=== PATIENT | male | born 1945 | race Caucasian/White ===

== ENCOUNTER 2016-12-07 23:49 | Inpatient (IN) | payer OTHER ==
[~2016-12-07] VITALS: Ht 177.8 cm; Wt 59.4 kg
[2016-12-07 23:50] VITALS: BP_SYST 96
[2016-12-08] MEDS ORDERED: ONDANSETRON HCL 4 MG/2 ML VIAL IVP ONE (00:15)
[2016-12-08] MEDS ORDERED: NACL 0.9% 1,000 ML IV ONE (00:45)
[2016-12-08 01:50] LABS: BASOPHILS % (AUTO) 0.2 % (0.0-2.0); EOSINOPHILS # (AUTO) 0.2 K/uL (0.0-0.4); EOSINOPHILS % (AUTO) 1.3 % (0.0-4.0); HEMATOCRIT 35.5 % (36-54); HEMOGLOBIN 11.8 g/dL (14.0-18.0); LYMPHOCYTES # (AUTO) 1.4 K/uL (1.0-5.5); LYMPHOCYTES % (AUTO) 7.9 % (20.5-51.5); MEAN CORPUSCULAR HEMOGLOBIN 32 pg (27-31); MEAN CORPUSCULAR HGB CONC 33 % (32-36); MEAN CORPUSCULAR VOLUME 97 fL (79.0-98.0); MONOCYTES # (AUTO) 0.6 K/uL (0.0-1.0); MONOCYTES % (AUTO) 3.5 % (1.7-9.3); NEUTROPHILS # (AUTO) 15.5 K/uL (1.8-7.7); NEUTROPHILS % (AUTO) 87.1 % (40.0-70.0); PLATELET COUNT (AUTO) 314 K/uL (130-430); RED BLOOD CELL COUNT(AUTO) 3.68 MIL/uL (4.2-6.2); RED CELL DISTRIBUTION WIDTH 12.9 % (9.0-15.0); WHITE BLOOD COUNT (AUTO) 17.7 K/uL (4.8-10.8)
[2016-12-08 01:54] LABS: ANION GAP 4 (5-15); CALCIUM 8.2 mg/dL (8.4-11.0); CHLORIDE 101 mmol/L (98-107); CREATININE 1.21 mg/dL (0.55-1.30); GLUCOSE 248 mg/dL (70-99); POTASSIUM 4.1 mmol/L (3.5-5.1); SODIUM SERUM 137 mmol/L (136-145); UREA NITROGEN, BLOOD 14 mg/dL (8-21)
[2016-12-08 02:01] LABS: ALANINE AMINOTRANSFERASE 19 U/L (12-78); ALBUMIN 2.2 g/dL (3.4-4.8); ASPARTATE AMINOTRANSFERASE 20 U/L (10-37); LIPASE 1335 U/L (73-393); TOTAL BILIRUBIN 0.4 mg/dL (0.0-1.0)
[2016-12-08] MEDS ORDERED: GLU500 PO (02:03)
[2016-12-08] MEDS ORDERED: GABA-531 PO (02:03)
[2016-12-08] MEDS ORDERED: FOLI-43 PO (02:03)
[2016-12-08] MEDS ORDERED: PRED5TAB PO (02:03)
[2016-12-08 02:37] VITALS: BP_SYST 127
[2016-12-08] MEDS: NACL 0.9% 1,000 ML IV SCH ×3 (02:48→19:55)
[2016-12-08 02:49] VITALS: BP_SYST 127
[2016-12-08 03:59] VITALS: BP_SYST 137
[2016-12-08 07:47] LABS: AMYLASE 142 U/L (0-100); LIPASE 1169 U/L (73-393)
[2016-12-08 08:00] VITALS: BP_SYST 138
[2016-12-08] MEDS ORDERED: DIATR MEGLU/DIATRIZ SOD 30 ML SOLUTION PO ONE (08:19)
[2016-12-08] MEDS ORDERED: ENALAPRILAT DIHYDRATE 1.25 MG/ML VIAL IVP PRN (08:30)
[2016-12-08] MEDS ORDERED: DEXTROSE 50% JECT 50 ML DISP.SYRIN IVP PRN (08:30)
[2016-12-08] MEDS ORDERED: IOHEXOL 100 ML IV ONE (10:41)
[2016-12-08] MEDS: INSULIN REGULAR, HUMAN 100 UNITS/ML, 10 ML VIAL (novoLIN R) SUBCUT PRN (11:13)
[2016-12-08 12:20] VITALS: BP_SYST 122
[2016-12-08 15:48] VITALS: BP_SYST 144
[2016-12-08] MEDS: MORPHINE 2 MG/ML INJ. SYRINGE IVP PRN ×2 (17:24→21:15)
[2016-12-08] MEDS: ONDANSETRON HCL 4 MG/2 ML VIAL IVP PRN (19:52)
[2016-12-09] VITALS: BP_SYST 105
[2016-12-09] MEDS: ONDANSETRON HCL 4 MG/2 ML VIAL IVP PRN ×3 (01:07→21:14)
[2016-12-09] MEDS: MORPHINE 2 MG/ML INJ. SYRINGE IVP PRN ×3 (01:08→23:53)
[2016-12-09 06:01] VITALS: BP_SYST 127
[2016-12-09] MEDS: NACL 0.9% 1,000 ML IV SCH ×2 (06:19→16:27)
[2016-12-09 07:40] LABS: HEMATOCRIT 41.5 % (36-54); HEMOGLOBIN 13.6 g/dL (14.0-18.0); MEAN CORPUSCULAR HEMOGLOBIN 31 pg (27-31); MEAN CORPUSCULAR HGB CONC 33 % (32-36); MEAN CORPUSCULAR VOLUME 96 fL (79.0-98.0); PLATELET COUNT (AUTO) 414 K/uL (130-430); RED BLOOD CELL COUNT(AUTO) 4.34 MIL/uL (4.2-6.2); RED CELL DISTRIBUTION WIDTH 12.9 % (9.0-15.0)
[2016-12-09 07:46] LABS: WHITE BLOOD COUNT (AUTO) 22.2 K/uL (4.8-10.8)
[2016-12-09 08:05] VITALS: BP_SYST 109
[2016-12-09 08:06] LABS: ALANINE AMINOTRANSFERASE 20 U/L (12-78); ALBUMIN 2.3 g/dL (3.4-4.8); ANION GAP 10 (5-15); ASPARTATE AMINOTRANSFERASE 17 U/L (10-37); CALCIUM 8.9 mg/dL (8.4-11.0); CHLORIDE 100 mmol/L (98-107); CREATININE 1.08 mg/dL (0.55-1.30); GLUCOSE 137 mg/dL (70-99); POTASSIUM 4.1 mmol/L (3.5-5.1); SODIUM SERUM 135 mmol/L (136-145); TOTAL BILIRUBIN 1.1 mg/dL (0.0-1.0); UREA NITROGEN, BLOOD 10 mg/dL (8-21)
[2016-12-09 09:37] LABS: ATYPICAL LYMPHOCYTES % 0 % (0-0); BAND % (MANUAL) 3 % (0-6); BASOPHILS % (MANUAL) 0 % (0-2); EOSINOPHILS % (MANUAL) 3 % (0-7); LYMPHOCYTES % (MANUAL) 8 % (20-46); MONOCYTES % (MANUAL) 5 % (0-11)
[2016-12-09 13:18] VITALS: BP_SYST 102
[2016-12-09 17:20] VITALS: BP_SYST 113
[2016-12-09 20:10] VITALS: BP_SYST 110
[2016-12-09] MEDS: INSULIN REGULAR, HUMAN 100 UNITS/ML, 10 ML VIAL (novoLIN R) SUBCUT PRN (23:52)
[2016-12-10 01:04] VITALS: BP_SYST 115
[2016-12-10] MEDS: NACL 0.9% 1,000 ML IV SCH ×3 (02:43→23:24)
[2016-12-10 04:58] VITALS: BP_SYST 108
[2016-12-10] MEDS: INSULIN REGULAR, HUMAN 100 UNITS/ML, 10 ML VIAL (novoLIN R) SUBCUT PRN ×2 (06:45→17:07)
[2016-12-10 08:01] VITALS: BP_SYST 119
[2016-12-10] MEDS: MORPHINE 2 MG/ML INJ. SYRINGE IVP PRN ×3 (08:40→21:54)
[2016-12-10 10:03] LABS: HEMATOCRIT 39.2 % (36-54); HEMOGLOBIN 12.6 g/dL (14.0-18.0); MEAN CORPUSCULAR HEMOGLOBIN 31 pg (27-31); MEAN CORPUSCULAR HGB CONC 32 % (32-36); MEAN CORPUSCULAR VOLUME 97 fL (79.0-98.0); PLATELET COUNT (AUTO) 386 K/uL (130-430); RED BLOOD CELL COUNT(AUTO) 4.05 MIL/uL (4.2-6.2); RED CELL DISTRIBUTION WIDTH 13.2 % (9.0-15.0); WHITE BLOOD COUNT (AUTO) 22.3 K/uL (4.8-10.8)
[2016-12-10 10:07] LABS: ANION GAP 7 (5-15); CALCIUM 8.5 mg/dL (8.4-11.0); CHLORIDE 106 mmol/L (98-107); CREATININE 1.09 mg/dL (0.55-1.30); GLUCOSE 189 mg/dL (70-99); POTASSIUM 4.2 mmol/L (3.5-5.1); SODIUM SERUM 139 mmol/L (136-145); UREA NITROGEN, BLOOD 10 mg/dL (8-21)
[2016-12-10 10:11] LABS: ALANINE AMINOTRANSFERASE 17 U/L (12-78); ALBUMIN 2.2 g/dL (3.4-4.8); ASPARTATE AMINOTRANSFERASE 16 U/L (10-37); LIPASE 763 U/L (73-393); TOTAL BILIRUBIN 1.2 mg/dL (0.0-1.0)
[2016-12-10 10:24] LABS: ATYPICAL LYMPHOCYTES % 0 % (0-0); BAND % (MANUAL) 0 % (0-6); BASOPHILS % (MANUAL) 0 % (0-2); EOSINOPHILS % (MANUAL) 1 % (0-7); LYMPHOCYTES % (MANUAL) 10 % (20-46); MONOCYTES % (MANUAL) 2 % (0-11)
[2016-12-10 12:01] VITALS: BP_SYST 115
[2016-12-10 16:02] VITALS: BP_SYST 116
[2016-12-10 19:45] VITALS: BP_SYST 119
[2016-12-11 00:43] VITALS: BP_SYST 119
[2016-12-11] MEDS: MORPHINE 2 MG/ML INJ. SYRINGE IVP PRN (02:22)
[2016-12-11 04:07] VITALS: BP_SYST 118
[2016-12-11 08:04] VITALS: BP_SYST 125
[2016-12-11] MEDS: NACL 0.9% 1,000 ML IV SCH ×2 (09:14→20:22)
[2016-12-11] MEDS: ACETAMINOPHEN 325 MG TABLET PO PRN (09:35)
[2016-12-11 09:49] LABS: ANION GAP 6 (5-15); CALCIUM 8.3 mg/dL (8.4-11.0); CHLORIDE 104 mmol/L (98-107); CREATININE 0.93 mg/dL (0.55-1.30); GLUCOSE 199 mg/dL (70-99); POTASSIUM 3.6 mmol/L (3.5-5.1); SODIUM SERUM 136 mmol/L (136-145); UREA NITROGEN, BLOOD 8 mg/dL (8-21)
[2016-12-11 09:54] LABS: BASOPHILS # (AUTO) 0.2 K/uL (0.0-0.2); EOSINOPHILS # (AUTO) 0.3 K/uL (0.0-0.4); EOSINOPHILS % (AUTO) 1.9 % (0.0-4.0); HEMATOCRIT 33.9 % (36-54); HEMOGLOBIN 11.3 g/dL (14.0-18.0); LYMPHOCYTES # (AUTO) 1.7 K/uL (1.0-5.5); MEAN CORPUSCULAR HEMOGLOBIN 32 pg (27-31); MEAN CORPUSCULAR HGB CONC 33 % (32-36); MEAN CORPUSCULAR VOLUME 96 fL (79.0-98.0); MONOCYTES # (AUTO) 0.7 K/uL (0.0-1.0); MONOCYTES % (AUTO) 4.8 % (1.7-9.3); NEUTROPHILS # (AUTO) 12.2 K/uL (1.8-7.7); NEUTROPHILS % (AUTO) 81.3 % (40.0-70.0); PLATELET COUNT (AUTO) 326 K/uL (130-430); RED BLOOD CELL COUNT(AUTO) 3.54 MIL/uL (4.2-6.2); RED CELL DISTRIBUTION WIDTH 13.3 % (9.0-15.0); WHITE BLOOD COUNT (AUTO) 15.1 K/uL (4.8-10.8)
[2016-12-11 10:12] LABS: ALANINE AMINOTRANSFERASE 17 U/L (12-78); ASPARTATE AMINOTRANSFERASE 16 U/L (10-37); LIPASE 936 U/L (73-393); TOTAL BILIRUBIN 0.8 mg/dL (0.0-1.0)
[2016-12-11] MEDS: INSULIN REGULAR, HUMAN 100 UNITS/ML, 10 ML VIAL (novoLIN R) SUBCUT PRN (12:09)
[2016-12-11 12:12] VITALS: BP_SYST 113
[2016-12-11 16:06] VITALS: BP_SYST 122
[2016-12-11 20:00] VITALS: BP_SYST 138
[2016-12-12] MEDS: INSULIN REGULAR, HUMAN 100 UNITS/ML, 10 ML VIAL (novoLIN R) SUBCUT PRN ×3 (00:15→23:26)
[2016-12-12 00:25] VITALS: BP_SYST 144
[2016-12-12 04:32] VITALS: BP_SYST 133
[2016-12-12 08:00] VITALS: BP_SYST 140
[2016-12-12 10:53] LABS: BASOPHILS # (AUTO) 0.3 K/uL (0.0-0.2); BASOPHILS % (AUTO) 1.8 % (0.0-2.0); EOSINOPHILS # (AUTO) 0.3 K/uL (0.0-0.4); EOSINOPHILS % (AUTO) 1.9 % (0.0-4.0); HEMATOCRIT 34.8 % (36-54); HEMOGLOBIN 11.7 g/dL (14.0-18.0); LYMPHOCYTES # (AUTO) 1.5 K/uL (1.0-5.5); LYMPHOCYTES % (AUTO) 10.3 % (20.5-51.5); MEAN CORPUSCULAR HEMOGLOBIN 32 pg (27-31); MEAN CORPUSCULAR HGB CONC 34 % (32-36); MEAN CORPUSCULAR VOLUME 95 fL (79.0-98.0); MONOCYTES # (AUTO) 0.7 K/uL (0.0-1.0); MONOCYTES % (AUTO) 4.9 % (1.7-9.3); NEUTROPHILS # (AUTO) 11.6 K/uL (1.8-7.7); NEUTROPHILS % (AUTO) 81.1 % (40.0-70.0); PLATELET COUNT (AUTO) 371 K/uL (130-430); RED BLOOD CELL COUNT(AUTO) 3.65 MIL/uL (4.2-6.2); RED CELL DISTRIBUTION WIDTH 12.9 % (9.0-15.0); WHITE BLOOD COUNT (AUTO) 14.4 K/uL (4.8-10.8)
[2016-12-12 11:01] LABS: ANION GAP 6 (5-15); CALCIUM 8.7 mg/dL (8.4-11.0); CHLORIDE 102 mmol/L (98-107); CREATININE 0.88 mg/dL (0.55-1.30); GLUCOSE 174 mg/dL (70-99); POTASSIUM 3.7 mmol/L (3.5-5.1); SODIUM SERUM 136 mmol/L (136-145); UREA NITROGEN, BLOOD 6 mg/dL (8-21)
[2016-12-12 11:06] LABS: ALANINE AMINOTRANSFERASE 22 U/L (12-78); ALBUMIN 2.2 g/dL (3.4-4.8); ASPARTATE AMINOTRANSFERASE 22 U/L (10-37); TOTAL BILIRUBIN 0.6 mg/dL (0.0-1.0)
[2016-12-12 12:05] VITALS: BP_SYST 133
[2016-12-12] MEDS: NACL 0.9% 1,000 ML IV SCH ×3 (12:08→22:03)
[2016-12-12 15:54] VITALS: BP_SYST 130
[2016-12-12] MEDS: ACETAMINOPHEN 325 MG TABLET PO PRN (20:21)
[2016-12-12 20:25] VITALS: BP_SYST 104
[2016-12-13 00:18] VITALS: BP_SYST 117
[2016-12-13] MEDS: ACETAMINOPHEN 325 MG TABLET PO PRN (02:24)
[2016-12-13 04:43] VITALS: BP_SYST 114
[2016-12-13] MEDS: INSULIN REGULAR, HUMAN 100 UNITS/ML, 10 ML VIAL (novoLIN R) SUBCUT PRN (05:39)
[2016-12-13 08:13] VITALS: BP_SYST 132
[2016-12-13 10:17] VITALS: BP_SYST 132
[2016-12-13] MEDS ORDERED: ONDA4TAB22 PO (10:26)
[2016-12-13] MEDS ORDERED: PRO40 PO (10:27)
[2016-12-13] MEDS ORDERED: FOLI-43 PO (10:27)
[2016-12-13] MEDS ORDERED: THIA100T13 PO (10:27)
== END 2016-12-13 10:50 | disposition home or self-care (01) | DRG 439 ==
LOC: SED 23:49 → SMU 12-08 02:18
DX: K85.20 Alcohol induced acute pancreatitis without necrosis or infection (principal); Z68.1 Body mass index [BMI] 19.9 or less, adult; E11.9 Type 2 diabetes mellitus without complications; M06.9 Rheumatoid arthritis, unspecified; E44.1 Mild protein-calorie malnutrition; E66.3 Overweight; Z79.52 Long term (current) use of systemic steroids; Z79.899 Other long term (current) drug therapy
CPT/HCPCS: 36415; 71010; 74181; 76700-TC; 80053; 82150-TC; 82787; 82962; 83690-TC; 84478-TC; 85007; 85025; 85027; 86038; 99285; J1815; J2270; J2405; J7030; Q9964; Q9967